=== PATIENT | female | born 1935 | race Caucasian/White ===

== ENCOUNTER 2016-09-19 05:17 | Observation (INO) | payer OTHER ==
[~2016-09-19] VITALS: Ht 162.6 cm; Wt 69.5 kg
[~2016-09-19 05:17] MED LIST: ALEN1TAB48 PO; ATOR40TA16 PO; CALC1TAB30 PO; FENO54TA PO; FISH1000 PO; FURO20TA PO; GABA100C4 PO; LEVO-154 PO; LOSA25TA PO; MULT1TAB84 PO; PHEN100C PO; PHEN16.2 PO; PHEN200C3 PO
[2016-09-19] MEDS ORDERED: METOPROLOL TARTRATE 25 MG TAB PO PRN (05:45)
[2016-09-19] MEDS ORDERED: INSULIN HUMAN REGULAR 1,000 UNITS/10 ML VIAL SQ PRN (05:45)
[2016-09-19 06:12] VITALS: BP 131/66; PULSE 73; RESP 20; TEMP 97.7; O2SAT 96
[2016-09-19] MEDS ORDERED: LEVOFLOXACIN 500 MG PREMIX INJ 100 ML IV SCH (06:30)
[2016-09-19] MEDS ORDERED: metroNIDAZOLE 500 MG INJ 100 ML IV SCH (06:30)
[2016-09-19] MEDS ORDERED: HEPARIN SODIUM - SQ 10,000 UNITS/ML VIAL SQ SCH (06:30)
[2016-09-19] MEDS ORDERED: FAMOTIDINE 20 MG/2 ML VIAL ONE ×2 (07:05→07:21)
[2016-09-19] MEDS ORDERED: ACETAMINOPHEN 1000 MG/100 ML VIAL IV ONE ×2 (07:05→07:08)
[2016-09-19] MEDS ORDERED: ARTIFICIAL TEARS OPTH OINT 3.5 APPLIC/3.5 GM TUBO ONE (07:16)
[2016-09-19] MEDS ORDERED: MIDAZOLAM HCL 2 MG/2 ML VIAL ONE (07:21)
[2016-09-19] MEDS ORDERED: DEXAMETHASONE SOD PHOS 4 MG/ML VIAL ONE (07:22)
[2016-09-19] MEDS ORDERED: SODIUM CHLORID 0.9% 500 ML IV SCH (07:30)
[2016-09-19] MEDS ORDERED: LACTATED RINGER'S 1000 ML IV SCH (07:30)
[2016-09-19] MEDS ORDERED: LIDOCAINE 1%/EPINEPHrine 1:100,000 SOLN 30 ML VIAL INFIL ONE (08:20)
[2016-09-19] MEDS ORDERED: METHYLENE BLUE 10 MG/ML VIAL OTHER ONE (09:07)
[2016-09-19] MEDS ORDERED: SODIUM CHLORIDE 0.9% FLUSH 5 ML FLUSH FLUSH PRN (10:45)
[2016-09-19] MEDS ORDERED: LORazepam 0.5 MG TAB PO PRN (10:45)
[2016-09-19] MEDS ORDERED: traMADol HCL 50 MG TAB PO PRN (10:45)
[2016-09-19] MEDS ORDERED: diphenhydrAMINE HCL 25 MG CAP PO PRN (10:45)
[2016-09-19] MEDS ORDERED: DO NOT ADM ANY ANTICOAGULANT DRUGS XX PRN (10:55)
[2016-09-19] MEDS: D5-1/2 NS + KCL 20 MEQ INJ 1,000 ML IV SCH ×2 (11:00→23:55)
[2016-09-19] MEDS: KETOROLAC TROMETHAMINE 30 MG/ML (IVP) VIAL IVP SCH ×3 (11:00→22:34)
[2016-09-19] MEDS ORDERED: fentaNYL CITRATE 250 MCG/5 ML AMP ONE (11:06)
[2016-09-19] MEDS ORDERED: SUGAMMADEX SODIUM 200 MG/2 ML VIAL IV PUSH ONE ×2 (11:06)
[2016-09-19] MEDS ORDERED: PILL SPLITTER OTHER PRN (11:15)
[2016-09-19] MEDS ORDERED: *morphine SULFATE 8 MG/ML PERIprocedure ONLY ONE (11:36)
[2016-09-19] MEDS ORDERED: ePHEDrine/NS 25 MG/5 ML SYR IV ONE (12:00)
[2016-09-19] MEDS ORDERED: NORMOSOL R INJ 2,000 ML IV ONE (12:00)
[2016-09-19] MEDS ORDERED: VECURONIUM BROMIDE 10 MG VIAL IV ONE (12:00)
[2016-09-19] MEDS ORDERED: LACTATED RINGER'S 1000 ML INJ 1,000 ML IV ONE (12:00)
[2016-09-19] MEDS ORDERED: PROPOFOL 200 MG/20 ML AMP IV ONE (12:00)
[2016-09-19] MEDS ORDERED: PHENYLEPH/NS 1000 MCG/10 ML SYR IV ONE (12:00)
[2016-09-19] MEDS ORDERED: ONDANSETRON HCL 4 MG/2 ML VIAL IV PUSH ONE (12:00)
[2016-09-19 12:35] VITALS: BP 117/58; PULSE 72; RESP 20; TEMP 97.1; O2SAT 94
[2016-09-19] MEDS: PHENYTOIN SODIUM 100 MG CAP PO SCH ×2 (13:19→16:57)
[2016-09-19] MEDS: GABAPENTIN 100 MG CAP PO SCH ×2 (13:22→16:57)
[2016-09-19] MEDS ORDERED: ONDANSETRON ODT 4 MG TAB PO PRN (15:45)
--- NOTE | 2016-09-19 15:48 | PD.ONC.PN ---
Subjective Subjective Remarks Post op check pt is doing well without any pain only complaint is some nausea, no vomiting family at bedside Objective Data Date Time Temp Pulse Resp B/P Pulse Ox O2 Delivery O2 Flow Rate FiO2 09/19/16 12:35 97.1 72 20 117/58 94 09/19/16 12:16 98.0 74 18 132/63 66 Nasal Cannula 2 09/19/16 12:00 74 18 128/67 95 Nasal Cannula 2 09/19/16 11:45 76 18 135/69 94 Nasal Cannula 2 09/19/16 11:30 70 18 140/71 95 Nasal Cannula 2 09/19/16 11:15 73 18 129/66 92 Nasal Cannula 2 09/19/16 11:00 81 18 133/62 95 Nasal Cannula 2 09/19/16 10:55 97.8 85 18 143/75 95 Nasal Cannula 2 09/19/16 06:12 97.7 73 20 131/66 96 09/19/16 09/19/16 09/19/16 07:00 15:00 23:00 Intake Total 2270 ml Output Total 950 ml Balance 1320 ml Laboratory Results Laboratory Tests Test 09/19/16 09/19/16 05:55 07:03 Blood Type O NEGATIVE O NEGATIVE Antibody Screen 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 SKIN: Warm and dry. HEAD: Normocephalic. EYES: No scleral icterus. No injection or drainage. , pupils are small but equal bilat CARDIOVASCULAR: Regular rate and rhythm without murmurs. RESPIRATORY: Breath sounds equal bilaterally. No accessory muscle use. GASTROINTESTINAL: surgical sites SS are c/d/i EXTREMITIES: TEDs and SCDs MUSCULOSKELETAL: Adequate muscle tone. NEUROLOGICAL: No obvious focal deficit. Awake, alert, and oriented x3. PSYCHIATRIC: Appropriate mood and affect; insight and judgment normal. Assessment/Plan Problem List: (1) Postoperative nausea Status: Acute Plan: Zofran ODT 4mg Q 4 PRN activa in EMR (2) Post-operative state Status: Acute Plan: post op orders are in chart Toradol for pain d/c Mcclure in am IS at bedside and instructions given for use anticipate D/C tomorrow Akira Huynh Sep 19, 2016 15:48
[2016-09-19 16:00] VITALS: BP 99/50; PULSE 74; RESP 18; TEMP 97.7; O2SAT 99
[2016-09-19] MEDS: METOCLOPRAMIDE HCL 10 MG/2 ML VIAL IV PRN (16:57)
[2016-09-19 20:00] VITALS: BP 97/42; PULSE 81; RESP 18; TEMP 96.2; O2SAT 93
[2016-09-19] MEDS: SODIUM CHLORIDE 0.9% FLUSH 5 ML FLUSH FLUSH SCH (20:03)
[2016-09-19] MEDS ORDERED: ATORVASTATIN 40 MG TAB PO SCH (21:00)
[2016-09-20] VITALS: BP 99/66; PULSE 72; RESP 16; TEMP 97.3; O2SAT 92
[2016-09-20 04:00] VITALS: BP 102/56; PULSE 75; RESP 18; TEMP 97.7; O2SAT 92
[2016-09-20] MEDS: METOCLOPRAMIDE HCL 10 MG/2 ML VIAL IV PRN ×2 (04:10→10:58)
[2016-09-20] MEDS: KETOROLAC TROMETHAMINE 30 MG/ML (IVP) VIAL IVP SCH (04:23)
[2016-09-20] MEDS ORDERED: LEVOTHYROXINE SODIUM 75 MCG TAB PO SCH (06:00)
[2016-09-20] MEDS ORDERED: LEVOTHYROXINE SODIUM 100 MCG TAB PO SCH (06:00)
[2016-09-20 06:27] LABS: BASOPHIL # 0.1 TH/MM3 (0-0.2); BASOPHIL % 1.4 % (0.0-2.0); EOSINOPHIL % 0.2 % (0.0-4.0); HEMATOCRIT 33.9 % (35.0-46.0); HEMO FLAGS DIFF FINAL; LYMPH % 9.2 % (9.0-44.0); LYMPHOCYTE # 0.9 TH/MM3 (1.0-4.8); MEAN CELL VOLUME 99.4 FL (80.0-100.0); MEAN CORPUSCULAR HEMOGLOBIN 34.4 PG (27.0-34.0); MEAN CORPUSCULAR HGB CONC 34.7 % (32.0-36.0); MONO % 10.6 % (0.0-8.0); NEUT % 78.6 % (16.0-70.0); PLATELET COUNT 154 TH/MM3 (150-450); RED BLOOD COUNT 3.42 MIL/MM3 (4.00-5.30); RED CELL DISTRIBUTION WIDTH 12.9 % (11.6-17.2); WHITE BLOOD COUNT 10.2 TH/MM3 (4.0-11.0)
[2016-09-20 06:46] LABS: BICARBONATE 23.6 MEQ/L (21.0-32.0); POTASSIUM 3.5 MEQ/L (3.5-5.1)
[2016-09-20] MEDS ORDERED: ONDANSETRON INJ 8 MG in DEXTROSE 5% IN WATER INJ 50 ML IV PRN ×2 (07:45)
[2016-09-20 08:00] VITALS: BP 100/48; PULSE 84; RESP 16; TEMP 96.5; O2SAT 94
[2016-09-20] MEDS: SODIUM CHLORIDE 0.9% FLUSH 5 ML FLUSH FLUSH SCH (08:11)
[2016-09-20 08:35] VITALS: O2SAT 94
[2016-09-20] MEDS ORDERED: NON-FORMULARY DRUG (Levothyroxine 175 MCG) PO SCH (09:00)
[2016-09-20] MEDS ORDERED: FUROSEMIDE 20 MG TAB PO SCH (09:00)
[2016-09-20] MEDS: GABAPENTIN 100 MG CAP PO SCH ×2 (09:00→13:19)
[2016-09-20] MEDS ORDERED: LOSARTAN 25 MG TAB PO SCH (09:00)
[2016-09-20] MEDS: PHENYTOIN SODIUM 100 MG CAP PO SCH ×2 (09:00→13:19)
[2016-09-20 12:00] VITALS: BP 115/55; PULSE 68; RESP 16; TEMP 97.1; O2SAT 95
[2016-09-20] MEDS ORDERED: PROPOFOL 200 MG/20 ML AMP IV ONE (12:00)
[2016-09-20] MEDS ORDERED: ULTR50TA5 PO (13:46)
[2016-09-20] MEDS ORDERED: ZOFR8TAB PO (13:46)
--- NOTE | 2016-09-20 14:43 | PD.ONC.PN ---
Subjective Subjective Remarks POD #1 pt sitting up in chair feels ready to go home, she has been drinking fluids without any further nausea or vomiting she "does not want to eat any hospital food" but she states she is having no pain, no headaches and has been up to bathroom a few times. Objective Data Date Time Temp Pulse Resp B/P Pulse Ox O2 Delivery O2 Flow Rate FiO2 09/20/16 12:00 97.1 68 16 115/55 95 09/20/16 08:35 94 Nasal Cannula 2.00 09/20/16 08:00 96.5 84 16 100/48 94 09/20/16 04:00 97.7 75 18 102/56 92 09/20/16 00:00 97.3 72 16 99/66 92 09/19/16 20:00 96.2 81 18 97/42 93 09/19/16 16:50 18 09/19/16 16:00 97.7 74 18 99/50 99 09/20/16 09/20/16 09/20/16 07:00 15:00 23:00 Intake Total 240 ml Output Total 250 ml 30 ml Balance -10 ml -30 ml Result Diagram: 09/20/16 0605 09/20/16 0605 Laboratory Results Laboratory Tests Test 09/20/16 06:05 White Blood Count 10.2 TH/MM3 Red Blood Count 3.42 MIL/MM3 Hemoglobin 11.8 GM/DL Hematocrit 33.9 % Mean Corpuscular Volume 99.4 FL Mean Corpuscular Hemoglobin 34.4 PG Mean Corpuscular Hemoglobin 34.7 % Concent Red Cell Distribution Width 12.9 % Platelet Count 154 TH/MM3 Mean Platelet Volume 9.0 FL Neutrophils (%) (Auto) 78.6 % Lymphocytes (%) (Auto) 9.2 % Monocytes (%) (Auto) 10.6 % Eosinophils (%) (Auto) 0.2 % Basophils (%) (Auto) 1.4 % Neutrophils # (Auto) 8.0 TH/MM3 Lymphocytes # (Auto) 0.9 TH/MM3 Monocytes # (Auto) 1.1 TH/MM3 Eosinophils # (Auto) 0.0 TH/MM3 Basophils # (Auto) 0.1 TH/MM3 CBC Comment DIFF FINAL Differential Comment Sodium Level 134 MEQ/L Potassium Level 3.5 MEQ/L Chloride Level 103 MEQ/L Carbon Dioxide Level 23.6 MEQ/L Anion Gap 7 MEQ/L Blood Urea Nitrogen 5 MG/DL Creatinine 0.56 MG/DL Estimat Glomerular Filtration 105 ML/MIN Rate Random Glucose 128 MG/DL Calcium Level 7.6 MG/DL Administered Medications Medications (Trade) Dose Ordered Sig/Keaton Route PRN Reason Start Time Stop Time Status Last Admin Dose Admin Atorvastatin Calcium (Lipitor) 40 mg HS PO 09/19/16 21:00 09/19/16 20:03 Gabapentin (Neurontin) 100 mg TID PO 09/19/16 13:00 09/20/16 13:19 Phenobarbital (PHENobarbital) 16.2 mg TID PO 09/19/16 13:00 09/20/16 13:19 Phenytoin 100 mg 100 mg TID PO 09/19/16 13:00 09/20/16 13:19 Potassium Chloride/Dextrose/ Sod Cl (D5-1/2 NS + KCl 20 Meq Inj) 1,000 ml @ 75 mls/hr [id number] IV 09/19/16 11:00 09/19/16 23:55 IV Flush (NS Flush) 2 ml BID FLUSH 09/19/16 21:00 09/20/16 08:11 Levothyroxine Sodium (Synthroid) 100 mcg DAILY@0600 PO 09/20/16 06:00 09/20/16 05:41 Levothyroxine Sodium (Synthroid) 75 mcg DAILY@0600 PO 09/20/16 06:00 09/20/16 05:41 Ondansetron HCl (Zofran Odt) 4 mg Q4H PRN PO NAUSEA 09/19/16 15:45 09/19/16 15:50 Metoclopramide HCl 10 mg 10 mg Q6H PRN IV NAUSEA 09/19/16 17:00 09/20/16 10:58 Ondansetron HCl/ Dextrose (Zofran Inj/D5W Inj) 54 ml @ 216 mls/hr Q6H PRN IV NAUSEA 09/20/16 07:45 09/20/16 08:11 Objective Remarks GENERAL: Well-nourished, well-developed patient. SKIN: Warm and dry. HEAD: Normocephalic. NEUROLOGICAL: No obvious focal deficit. Awake, alert, and oriented x3. PSYCHIATRIC: Appropriate mood and affect; insight and judgment normal. Assessment/Plan Problem List: (1) Postoperative nausea Status: Acute Plan: Zofran ODT 4mg Q 4 PRN activa in EMR (2) Post-operative state Status: Acute Plan: pt meets criteria for discharge home zofran 8mg Q 8 hours prn tramadol 50mg 1 po q 6 hours prn scripts in chart ok to resume home meds will follow up in office X 2 weeks Attending Statement Discussed with Dr. Choudhary and he is in agreement with this plan of care. Akira Huynh Sep 20, 2016 14:43
--- NOTE | 2016-09-23 13:15 | MP ---
cc: TAL DAUGHERTY MD, KELLY L. MD DATE OF SURGERY: 09/19/2016 PREOPERATIVE DIAGNOSIS 1. Pelvic mass. 2. Fluid within the endometrial cavity. POSTOPERATIVE DIAGNOSIS 1. Left ovarian cystadenoma. 2. Atrophic endometrial changes with cervical stenosis. PROCEDURE Robotic-assisted laparoscopic hysterectomy, bilateral salpingo-oophorectomy. SURGEON Marielle Choudhary [employer] ANESTHESIA General endotracheal. ESTIMATED BLOOD LOSS 150 cc. IV FLUIDS 2200 cc. URINE OUTPUT 600 cc. HISTORY A 80-year-old female who has been followed periodically for follow-up after treatment for lymphoma, found to have a pelvic mass. It has been present for a number of years but has gradually increased in size, predominantly cystic but with some septations. No other evidence to suggest metastatic disease. She was counseled regarding these findings. Also a small amount of fluid in an otherwise narrow-appearing endometrium. She was in favor of definitive surgical evaluation and management and presents now for that endeavor. FINDINGS The uterus is small, sounds to 6 cm. The right tube and ovary are grossly normal. The left ovary is approximately 6 cm with a smooth-walled cystic mass with a few internal septations. No nodules or solid component of significance. There was no appreciable adenopathy in the retroperitoneum. The liver and diaphragm edges are smooth. Omentum grossly appeared normal. Large and small bowel and adjacent mesentery all without tumor implants. 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 DETAILS OF PROCEDURE The patient was taken to the operating room and placed in the dorsal lithotomy position after general endotracheal anesthesia was administered. A timeout was undertaken. The patient was identified by sight recognition, hospital ID bracelet and the proposed procedure was reviewed and confirmed. She was carefully positioned in padded Clarence stirrups. Her arms were padded and secured to the sides. She was further secured to the operating table with eggcrate padding and tape in a cross chest over the shoulder fashion. All sites were noted to be properly aligned with no malalignments or pressure points. She was prepped in sterile fashion, draped below the waist, placed in high lithotomy position. The cervix was grasped, uterine cavity sounded, cervix dilated. The standard [place] manipulator was inserted and secured in the usual fashion. A Mcclure catheter was placed in the bladder. She was returned to low lithotomy position. Change of sterile gloves was undertaken. We confirmed that an orogastric airway was in the stomach on suction. With manual elevation of the abdominal wall and direct laparoscopic visualization a 5 mm cannula was introduced into the left upper abdomen. Atraumatic entry was confirmed. Carbon dioxide gas was insufflated. She was placed in Trendelenburg position. A 12 mm cannula was placed in the midline above the umbilicus. An 8 mm cannula was placed in the right upper abdomen and left lateral abdomen, and the original 5 exchanged for an 8 mm cannula. Peritoneal washings were obtained for cytology. The anatomy was surveyed with findings as described above. The small bowel was folded back on its mesenteric root. Three Ray-Elida sponges were placed around the root of the small bowel mesentery. The robotic system was brought into the operative field and attached in the usual fashion. Monopolar scissors, fenestrated bipolar forceps and ProGrasp manipulators were placed in arms #1, 2 and 3 respectively, and I took my place at the surgeon's console. The right round ligament was isolated, cauterized and transected. The anterior and posterior leafs of the broad ligament were opened. The right ureter was identified. The right infundibulopelvic ligament was isolated. The infundibulopelvic ligament was cauterized and transected. The posterior peritoneum was opened along the right side of the uterus and cervix. The right vesicouterine peritoneum was dissected off the lower uterine segment and cervix. The right uterine vessels were skeletonized, cauterized and transected as were the cardinal, paracervical and uterosacral ligaments. Attention was directed toward the left side. Lysis of adhesion was carried out to mobilize the colon which was adherent to the left pelvic sidewall overlying the left pelvic sidewall structures. The left round ligament was isolated, cauterized and transected. The anterior and posterior leafs of the broad ligament were opened. The left ureter was identified. The left infundibulopelvic ligament was isolated. The infundibulopelvic ligament was isolated to the level of the pelvic brim which was cauterized and transected. The posterior peritoneum was opened along the left side of the uterus and cervix. The left vesicouterine peritoneum dissected off the lower uterine segment and cervix. Uterine vessels were skeletonized, cauterized and transected as were the cardinal, paracervical and uterosacral ligaments. The left utero-ovarian ligament was transected to separate the tube and ovary from the uterus to help facilitate specimen delivery. A colpotomy was performed following the cap of the VCare manipulator, the cervix from the upper vagina. The specimen was withdrawn which included uterus, cervix and the attached right tube and ovary. An EndoCatch bag was introduced to capture the left tube and ovary which were then delivered transvaginally. Each of the three Ray-Elida sponges were grasped with a ring forceps and delivered transvaginally. Each were inspected and noted to be removed in their entirety. A pneumo-occluder balloon was placed in the vagina to maintain pneumoperitoneum. Instruments 1 and 3 were exchanged for needle drivers as a 0 Vicryl suture was introduced. The vaginal cuff was closed securing the left lateral corner, full-thickness closure including the uterosacral ligament, posterior peritoneum, tied via instrument tie. Full-thickness closure was carried across the vaginal apex and held on counter traction to the contralateral corner where it was similarly fixed and secured tied via instrument tie. The needle was cut and removed. The pelvis was thoroughly irrigated. Small bleeders were rendered hemostatic with bipolar cautery. The bladder was filled with saline dyed with methylene blue. The bladder distended nicely under pressure. There were no areas of thinning, no visible blue, certainly no extravasation of dye, confirming the wall of the bladder intact. There was a good margin between the edge of the bladder and the vaginal cuff suture line. There was good peristalsis of ureters bilaterally and the bladder was drained. Vickie hemostatic agent was placed across the vaginal cuff and lateral pelvic sidewalls. The preliminary pathology came back showing benign tissue so it was felt that all reasonable surgical objectives in this individual had been completed. The robotic instruments were removed. The robotic system was disengaged from the operative field. I re-entered the bedside under sterile condition. We closed the 12 mm fascial defect with interrupted 0 Vicryl sutures using a needle pass fascial closure apparatus tied securely. This rendered the fascia completely airtight and hemostatic. The remaining cannulas were withdrawn. Carbon dioxide gas was removed. 3-0 Vicryl subcutaneous, 3-0 Vicryl subcuticular and Steri-Strips were used to close the skin incisions. She was returned to dorsal lithotomy position. Pelvic exam confirmed the vaginal cuff was well-supported. There were no vaginal lacerations, but superficial irritation to the mucosa with some superficial oozing and the remainder of the Vickie was placed in the vagina to assist in continued hemostasis. There were no remaining foreign objects in the vagina and final counts were correct. She was returned to dorsal supine position and was pending reversal of anesthesia when I left the operating room to precede her to the post-anesthesia care unit. MD ALFRED Neumann/KERLINE /7:56 AM /12:47 PM
== END 2016-09-20 14:53 | disposition home or self-care (01) ==
LOC: HSDC 05:17 → HSDI 10:42 → HOCA 12:24
PROVIDERS: ADMIT Obstetrics & Gynecology Gynecologic Oncology; ATTEND Obstetrics & Gynecology Gynecologic Oncology
DX: R19.00 Intra-abdominal and pelvic swelling, mass and lump, unspecified site (principal); D27.1 Benign neoplasm of left ovary; N88.2 Stricture and stenosis of cervix uteri; N83.8 Other noninflammatory disorders of ovary, fallopian tube and broad ligament
CPT/HCPCS: 00840; 58552; 80048; 85025; 86077; 86850; 86870; 86900; 86901; 86920; 86922; 88112; 88307; 88331; 94150; G0378; J0131; J1100; J1644; J1885; J1956; J2250; J2270; J2370; J2405; J2765; J3010; J3480; J7120